=== PATIENT | female | born 1945 | race Caucasian/White ===

== ENCOUNTER 2019-06-25 21:13 | Observation (INO) | payer MEDICARE ==
[~2019-06-25] VITALS: Ht 162.6 cm; Wt 98.3 kg
[2019-06-25 23:41] LABS: BASO # 0.1 (0.0-0.2); BASO % 0.2 % (0.0-2.0); EOS % 0.1 % (0-4.0); GRAN # 17.7 (1.4-6.5); GRAN % 86.8 % (42.2-75.2); HEMOGLOBIN 11.4 g/dl (12.5-16.0); LYMPH # 1.1 (1.2-3.4); LYMPH % 5.3 % (20.0-51.0); MEAN CELL VOLUME 95 fl (80.0-100.0); MEAN CORPUSCULAR HEMOGLOBIN 32 pg (27.0-31.0); MEAN CORPUSCULAR HGB CONC 33 g/dl (33.0-37.0); MEAN PLATELET VOLUME 9.8 fl (7.4-10.4); MONO # 1.4 (0.1-0.6); MONO % 6.8 % (1.7-9.3); PLATELET COUNT 311 K/mm3 (130-400); RED BLOOD COUNT 3.62 M/mm3 (4.10-5.30)
[2019-06-25 23:44] LABS: HEMATOCRIT 34.4 % (37.0-47.0)
[2019-06-25 23:47] LABS: PROTHROMBIN TIME 11.8 SECONDS (9.7-12.8)
[2019-06-25 23:49] LABS: ALBUMIN 3.6 gm/dL (3.5-5.0); BILIRUBIN,TOTAL 0.2 mg/dL (0.0-1.0); CALCIUM 8.5 mg/dL (8.4-10.2); POTASSIUM 4.2 mmol/L (3.4-5.0); TOTAL PROTEIN 6.5 gm/dL (6.4-8.2)
[2019-06-26] VITALS (8 sets, daily range): BP systolic 87–107; BP diastolic 35–55; PULSE 75–97; TEMP 97.7–98.6
[2019-06-26] MEDS ORDERED: ADVIL200 MG PO (01:43)
--- NOTE | 2019-06-26 05:18 | NUR ---
Patient rates pain level from 6-8/10. Repositioning and pain medication help patient's pain the most. Patient requires assistance x1 from staff for repositioning. Utilizes bed pain for toileting. Patient has orders for PT to assess this morning. Will continue to monitor patient.
[2019-06-26 07:35] LABS: BASO % 0.3 % (0.0-2.0); EOS % 0.1 % (0-4.0); GRAN % 76.2 % (42.2-75.2); MEAN CELL VOLUME 97 fl (80.0-100.0); MEAN CORPUSCULAR HGB CONC 33 g/dl (33.0-37.0); MEAN PLATELET VOLUME 10.3 fl (7.4-10.4); MONO # 0.8 (0.1-0.6); PLATELET COUNT 238 K/mm3 (130-400); RED BLOOD COUNT 2.99 M/mm3 (4.10-5.30); REDCELL DISTRIBUTION WIDTH-CV 13.3 % (11.5-14.5)
[2019-06-26 07:44] LABS: HEMATOCRIT 28.9 % (37.0-47.0); HEMOGLOBIN 9.4 g/dl (12.5-16.0); MEAN CORPUSCULAR HEMOGLOBIN 31 pg (27.0-31.0)
[2019-06-26 07:50] LABS: CREATININE, serum 0.88 (0.52-1.25); POTASSIUM 4.4 mmol/L (3.4-5.0)
--- NOTE | 2019-06-26 10:40 | NUR ---
Patient lives at home in [place] and ultimately plans to discharge home to upon her recovery. Patient's family is supportive as needed and her son (Zack Kimball) can be contacted at [phone]. Patient is retired and is mostly independent with daily living activities. Patient was in [place] motor [place] [address] and has no anticipated durable medical equipment needs at this time. Patient has no primary care physician, her pharamcy is [facility], and she does not have advance directives for healthcare completed or on file at this time. No further needs and criminal justice social worker will follow-up as needed.
[2019-06-26 16:24] LABS: HEMATOCRIT 30.6 % (37.0-47.0); HEMOGLOBIN 9.9 g/dl (12.5-16.0)
--- NOTE | 2019-06-26 19:30 | NUR ---
Shift assessment complete. Pt resting in bed, awake, a&o, cooperative c cares. Pt continued c/o pain to bilat hips R >L, rated "4/10" at this time. Denies any other c/o. INT patent. Pt denies further needs at this time. Family at bedside, call light in reach. Will continue to monitor.
--- NOTE | 2019-06-26 19:43 | NUR ---
Patient resting in bed. Family at bedside. César managed pain well today, per orders. We did discuss side effects of constipation. Ortho rounded per consult, no new orders. Patient tolerated diet. no n\v. able to sit up at edge of bed with assist. Iv to int. labs stable. awaiting Pt consult in [place] prior to discharge.
[2019-06-27 00:28] VITALS: BP 104/41; PULSE 82; TEMP 98.3
[2019-06-27 05:46] VITALS: BP 104/57; PULSE 79; TEMP 98.6
[2019-06-27 06:51] LABS: BASO % 0.4 % (0.0-2.0); EOS # 0.2 (0.0-0.7); EOS % 2.5 % (0-4.0); GRAN # 4.6 (1.4-6.5); HEMATOCRIT 31.1 % (37.0-47.0); HEMOGLOBIN 10.1 g/dl (12.5-16.0); LYMPH # 1.9 (1.2-3.4); LYMPH % 24.9 % (20.0-51.0); MEAN CELL VOLUME 96 fl (80.0-100.0); MEAN CORPUSCULAR HEMOGLOBIN 31 pg (27.0-31.0); MEAN CORPUSCULAR HGB CONC 33 g/dl (33.0-37.0); MEAN PLATELET VOLUME 10.3 fl (7.4-10.4); MONO # 0.8 (0.1-0.6); MONO % 10.7 % (1.7-9.3); PLATELET COUNT 248 K/mm3 (130-400); RED BLOOD COUNT 3.23 M/mm3 (4.10-5.30); REDCELL DISTRIBUTION WIDTH-CV 13.4 % (11.5-14.5)
--- NOTE | 2019-06-27 06:54 | NUR ---
Report from Lori MOSS.
[2019-06-27 07:06] LABS: ALBUMIN 3.5 gm/dL (3.5-5.0); BILIRUBIN,TOTAL 0.5 mg/dL (0.0-1.0); CALCIUM 8.6 mg/dL (8.4-10.2); CREATININE, serum 0.81 (0.52-1.25); POTASSIUM 4.1 mmol/L (3.4-5.0); TOTAL PROTEIN 6.4 gm/dL (6.4-8.2)
[2019-06-27 07:31] VITALS: BP 104/44; PULSE 72; TEMP 98.1
--- NOTE | 2019-06-27 10:40 | NUR ---
PT UP TO RECLINER WITH THERAPY. ASSESSMENTS COMPLETE. PAIN WELL CONTROLLED WITH PO PAIN MEDS. PT REPORTS THAT RECLINER IS MORE COMFORTABLE THAN BED. FAMILY AT BEDSIDE.
--- NOTE | 2019-06-27 10:43 | NUR ---
Initial visit attempt; Physical Therapy with patient. [employer] spoke with patient's daughter Tatiana, offering comfort and availability of spiritual care. [employer] will follow up when patient is awake and receptive.
[2019-06-27 12:26] VITALS: BP 119/54; PULSE 68; TEMP 97.9
[2019-06-27 15:36] VITALS: BP 101/27; PULSE 76; TEMP 98.9
--- NOTE | 2019-06-27 16:03 | NUR ---
ASHLEY met with the patient and the patient's son, Zack, to review discharge plan and to discuss PT's recommendation of a FWW and home health. The patient reports that she is not interested in home health at this time. She states that she would be interested in a FWW. ASHLEY presented and explained the Patient Choice Form for DME to the patient. The patient chose [facility]. Patient Choice Form signed by the patient and she was provided a copy. ASHLEY contacted and faxed the patient's walker order to Maryann at [facility]. [facility] to deliver the FWW to the patient's room. The patient is to discharge today, 06/27, and plans to stay with her brother in [place] for a couple days before returning back home to [place]. No additional needs at this time.
[2019-06-27] MEDS ORDERED: ULTRAM 50MG TAB50 MG PO (16:46)
--- NOTE | 2019-06-27 18:14 | NUR ---
DISCHARGE INSTRUCTIONS REVIEWED WITH PATIENT AND FAMILY. QUESTIONS SOLICITED AND ANSWERED. PT TAKEN BY WHEEL CHAIR TO EXIT BY STAFF.
== END 2019-06-27 18:15 | disposition home or self-care (01) ==
LOC: COL.ER 21:13 → MEDICAL 23:32
PROVIDERS: Emergency Medicine; ADMIT Surgery
DX: S32.302A Unspecified fracture of left ilium, initial encounter for closed fracture (principal); S32.301A Unspecified fracture of right ilium, initial encounter for closed fracture; S32.10XA Unspecified fracture of sacrum, initial encounter for closed fracture; V43.62XA Car passenger injured in collision with other type car in traffic accident, initial encounter; Y92.411 Interstate highway as the place of occurrence of the external cause; M54.5 Low back pain
CPT/HCPCS: G0378; J1170; J2060; J2405; J3010; J7030; J7120; Q9967